=== PATIENT | male | born 1965 | race Caucasian/White ===

== ENCOUNTER 2019-07-19 09:29 | Emergency (ER) | payer OTHER, SELFPAY ==
[~2019-07-19] VITALS: Ht 165.1 cm; Wt 104.3 kg
[2019-07-19 10:00] VITALS: Ht 165.1 cm; Wt 104.3 kg
[2019-07-19 10:32] LABS: BASOPHIL % 0.4 % (0-2); PLATELET COUNT 154 x10^3mcL (130-400)
[2019-07-19 10:42] LABS: CALCIUM 8.7 mg/dL (8.5-10.1); CARBON DIOXIDE 23.9 mmol/L (21-32); CHLORIDE SERUM 104 mmol/L (98-107); CREATININE SERUM 1.1 mg/dL (0.7-1.3); GFR1 > 60 mL/min; GLUCOSE SERUM 132 mg/dL (74-106); POTASSIUM SERUM 3.6 mmol/L (3.5-5.1); SODIUM SERUM 140 mmol/L (136-145)
[2019-07-19 10:45] LABS: FREE T4 1.04 ng/dL (0.76-1.46); FREE THYROXINE INDEX 2.4 ug/dL (1.4-4.5)
[2019-07-19 10:47] LABS: ALKALINE PHOSPHATASE 130 U/L (46-116); ALT/SGPT 34 U/L (16-63); AST/SGOT 17 U/L (15-37); BILIRUBIN TOTAL 1.3 mg/dL (0.20-1.00); C REACTIVE PROTEIN 1.6 mg/dL (<=0.9); TOTAL PROTEIN, SERUM 7.9 g/dL (6.4-8.2)
[2019-07-19 10:48] LABS: T3 TOTAL 1.23 ng/mL
[2019-07-19 11:10] LABS: ERYTHROCYTE SED RATE 21 mm/hr (0-20)
[2019-07-19 13:07] VITALS: BP 112/72
== END 2019-07-19 13:07 | disposition home or self-care (01) ==
LOC: ED 09:29
PROVIDERS: Specialist
DX: K11.5 Sialolithiasis (principal); I10 Essential (primary) hypertension
CPT/HCPCS: 84439; 87804; J1100; J1885; J2543; J3490; J7030; Q0092; Q9967